=== PATIENT | female | born 1945 | race Caucasian/White ===

== ENCOUNTER 2023-12-29 12:39 | Day surgery (SDC) | payer MEDICARE, SELFPAY ==
--- NOTE | 2023-12-29 | PATH_ITS ---
[facility] Accession Number: [id number] No. of containers..01 Tissue . 01 Material submitted: . colon - SIGMOID ANASTOMOSIS . 01 Diagnosis: Colon, sigmoid anastomosis, biopsy: Viable benign colonic mucosa with congested lamina propria and focal active inflammation. Negative for dysplasia, necrosis, or malignancy. TXN 12/31/2023 1529 Local . 01 Electronically signed: . Hammad Salcedo MD, Pathologist NPI- [id number] . 01 Gross description: . Received in formalin with two patient identifiers and sigmoid anastomosis, are two bradford soft tissue fragments both measuring 0.2 cm in greatest dimension. Submitted entirely in A1. ([id number]) /MRV 12/30/2023 1819 Local . 01 Pathologist provided ICD-10: K62.5 . 01 CPT . 394584 Specimen Comment: A courtesy copy of this report has been sent to [phone] Performed at: [address] [facility] [address], [place], [place] [id number] MD Barry Valderrama MD Phone: [phone]
[2023-12-29 13:14] VITALS: BP 155/88; PULSE 103; RESP 14; TEMP 37.4; O2SAT 99
[2023-12-29] MEDS: LACTATED RINGERS 1,000 ML 42 ML IV (13:22)
--- NOTE | 2023-12-29 13:24 | PM.HP.1 ---
History of Present Illness History of Present Illness Date Patient Seen: 12/29/23 Time Patient Seen: 13:24 Chief complaint: Colonoscopy Narrative: 78-year-old female with intermittent rectal bleeding here for colonoscopy. I reviewed my office note. She did well with the prep. No other significant changes. Bleeding persists. [facility]LY [facility] Medical History (Updated 12/29/23 @ 13:10 by Cece Quevedo RN) Sepsis Diverticula of colon Perforated bowel Polio Surgical History S/P colectomy H/O: hysterectomy Social History Smoking Status: Never smoker alcohol intake: never Meds Home Medications and Allergies Home Medications Medication Instructions Recorded Confirmed Type Aspirin Child 81 mg PO DAILY 12/29/23 12/29/23 History meloxicam 7.5 mg tablet 15 mg PO DAILY 12/29/23 12/29/23 History omeprazole 40 mg capsule,delayed 40 mg PO QAM 12/29/23 12/29/23 History release Allergies Allergy/AdvReac Type Severity Reaction Status Date / Time No Known Drug Allergies Allergy Verified 12/29/23 13:03 Review of Systems Review of Systems ROS: Yes All systems reviewed with the patient and are negative except as otherwise documented Exam Vital Signs (past 8 hours): - 12/29/23 13:14 Temperature 99.3 F Pulse Rate 103 H Respiratory Rate 14 Blood Pressure 155/88 H Pulse Oximetry 99 Oxygen Delivery Method Room Air Oxygen Delivery Method Room Air Const General: cooperative HENMT Head: normal to inspection Eyes General: appearance normal, both eyes and all related structures Neck Neck: normal visual inspection Chest Chest: normal inspection of the chest Resp Effort & Inspection: normal respiratory effort Cardio Rate: regular rate GI Inspection: normal to inspection Skin General: no rashes or lesions noted Neuro General: patient alert and patient awake Extrem General: normal to inspection and no pedal edema Psych Appearance: grossly normal Assessment & Plan Assessment & Plan narrative: 78-year-old female with a history of perforated diverticulitis status post segmental sigmoidectomy. She has a history of anastomotic mild stenosis requiring dilatation. Rectal bleeding symptoms persist and repeat colonoscopy is pursued today. We discussed the possibility of needing further dilatation and she consented to go ahead if need be.
--- NOTE | 2023-12-29 13:26 | PM.PREOP ---
Pre-operative Note Interval Note History & Physical reviewed/Exam performed by Physician: Yes Changes to H&P: No ASA Class (for procedural sedation): II
--- NOTE | 2023-12-29 14:46 | PM.OP.COLON ---
Operative Date/Time/Diagnoses Date of procedure: 12/29/23 Time of procedure: 14:46 Pre-op diagnosis: Rectal bleeding Post-op diagnosis: same Procedure & Clinicians Study performed: Colonoscopy with balloon dilatation and biopsy Same procedure as scheduled: Yes Indications: Rectal bleeding Surgeon: Ethan Antunez Procedure Notes SCOAP/Timeout: Done Procedure in detail: After the risks and benefits were explained, written and verbal informed consent was obtained. The patient was brought into the procedure room and placed into the left lateral decubitus position. Please see anesthesia notes for sedation details. Digital rectal examination was accomplished. The scope was introduced into the patient and advanced under direct visualization to end to side anastomosis around 15-18 cm from the anal verge. This was quite stenotic and I could not advance the pediatric colonoscope through here. I swapped out for a gastroscope and balloon dilated as described below. I then swapped out once again for the pediatric scope and advanced all the way to cecum as identified by the appendiceal orifice and ileocecal valve. The scope was slowly withdrawn to carefully examine the mucosa for any defects or lesions. Comprehensive imaging was accomplished throughout the rectum including the dentate line. The colon was decompressed, the scope was then removed from the patient who tolerated the procedure well. Procedure time was extended in light of the need for dilatation and multiple scopes. Twenty-two modifier is requested. Pediatric colonoscope and a standard gastroscope Bowel prep adequate Scope withdrawal time: 7 minutes Sedation minutes: 43 Complications: none Impression: The end to side anastomosis at around 15-18 cm from the anal verge was moderately stenotic. I could not navigate the pediatric scope through this. There was a small amount of superficial ulceration associated with this otherwise smooth stenotic area. I swapped out scopes for a standard gastroscope and then advanced a 12-15 mm CRE balloon into position over the wire. We sequentially dilated to 15 mm. I then swapped out balloons for the 15-18 mm balloon and dilated further at 16.5 and finally 18 mm. There was a moderate but appropriate rent in the mucosa. I advance the gastroscope through here but at around splenic flexure could not overcome looping so we swapped this scope out for the pediatric colonoscope once again. I did not appreciate any additional pathology from cecum on back. I elected to take a couple of small biopsies from the stenotic region itself. Endoscopic diagnosis 1. Stenotic end to side sigmoid anastomosis status post balloon dilatation to 18 mm plus biopsy. 2. Otherwise visually unremarkable colonoscopy Post-procedure Plan for aftercare: 1. Await histology 2. Fiber based bowel regimen for soft easy to evacuate stools. 3. Consider early repeat flexible sigmoidoscopy for further balloon dilatation. 4. Consider surgical evaluation for revision of the anastomosis. Disposition: PACU
[2023-12-29 14:47] VITALS: BP 123/67; PULSE 93; RESP 20; TEMP 36.2; O2SAT 96
[2023-12-29 14:52] VITALS: BP 123/53; PULSE 89; RESP 19; O2SAT 97
[2023-12-29 14:56] VITALS: BP 113/71; PULSE 77; RESP 17; O2SAT 100
[2023-12-29 15:01] VITALS: BP 119/70; PULSE 69; RESP 15; O2SAT 99
[2023-12-29 15:08] VITALS: BP 134/103; PULSE 71; RESP 20; TEMP 36.1; O2SAT 99
== END 2023-12-29 15:26 | disposition home or self-care (01) ==
PROVIDERS: PCP Student in an Organized Health Care Education/Training Program; Referring Provider Internal Medicine Gastroenterology; Visit Provider Internal Medicine Gastroenterology
PROC: 0DJD8ZZ Inspection of Lower Intestinal Tract, Via Natural or Artificial Opening Endoscopic (ICD-10-PCS; CPT 45378; principal; 2023-12-29 13:30)
DX: K62.5 Hemorrhage of anus and rectum (principal); K52.9 Noninfective gastroenteritis and colitis, unspecified
CPT/HCPCS: 45386; 45380; J2704

== ENCOUNTER 2024-02-16 12:15 | Day surgery (SDC) | payer MEDICARE, SELFPAY ==
[2024-02-16 13:21] VITALS: BP 162/90; PULSE 112; RESP 24; TEMP 36.8; O2SAT 95
--- NOTE | 2024-02-16 13:21 | P.OP.COLON_ITS ---
Operative Date/Time/Diagnoses Date of procedure: 02/16/24 Pre-op diagnosis: See indication and findings Procedure & Clinicians Study performed: Colonoscopy/sigmoidoscopy Indications: Anastomotic stricture and rectal bleeding Surgeon: Aleyda Eagle Procedure Notes Procedure in detail: After informed consent was obtained the patient was placed in left lateral decubitus position. The video colonoscope was introduced the rectum slowly advanced. Preparation was good. On slow withdrawal mucosa was carefully exami natanael. The scope was removed. The patient tolerated procedure well. Blood loss none Sedation mac Findings 1. End-to-side anastomosis at 12-15 cm. Side limb appears normal. Anastomosis itself had areas of friability and small amounts of blood. It 2. Scope passed easily to 50 cm and there was no abnormality in the colon between the anastomosis and 50 cm. The anastomosis was very friable. I would have patient get in touch with Dr. Antunez in about surgical referral as he discussed in last note. I do not think she needs further dilation as he was extremely easy to pass the scope through the anastomosis after he worked on and last procedure
--- NOTE | 2024-02-16 13:21 | PM.PREOP ---
Pre-operative Note Interval Note History & Physical reviewed/Exam performed by Physician: Yes Changes to H&P: No ASA Class (for procedural sedation): II
[2024-02-16] MEDS: LACTATED RINGERS 1,000 ML 100 ML IV (13:46)
[2024-02-16 14:03] VITALS: BP 102/76; PULSE 88; RESP 16; TEMP 36.3; O2SAT 99
[2024-02-16 14:08] VITALS: BP 103/73; PULSE 85; RESP 14; O2SAT 98
[2024-02-16 14:13] VITALS: BP 135/75; PULSE 83; RESP 13; O2SAT 99
[2024-02-16 14:21] VITALS: BP 145/91; PULSE 83; RESP 18; TEMP 36.8; O2SAT 99
== END 2024-02-16 15:03 | disposition home or self-care (01) ==
PROVIDERS: PCP Student in an Organized Health Care Education/Training Program; Referring Provider Internal Medicine Gastroenterology; Visit Provider Internal Medicine Gastroenterology
PROC: 0DJD8ZZ Inspection of Lower Intestinal Tract, Via Natural or Artificial Opening Endoscopic (ICD-10-PCS; CPT 45378; principal; 2024-02-16 13:30)
DX: K62.5 Hemorrhage of anus and rectum (principal); K56.699 Other intestinal obstruction unspecified as to partial versus complete obstruction
CPT/HCPCS: 45330; J2704

== ENCOUNTER → 2024-09-27 14:00 | Outpatient (CLI) | payer MEDICARE, SELFPAY ==
--- NOTE | 2024-09-27 14:01 | DI.MG.S_ITS ---
MM screening mammo BI: 09/27/2024. BI-RADS: 1 CLINICAL: 79-year old female for bilateral screening mammogram. Tyrer-Cuzick lifetime risk of 1.8%. No personal or first-degree family history of breast cancer. Current reported family history of breast cancer: maternal aunt. PRIOR EXAMS: 10/18/2022, 08/28/2020. MAMMOGRAPHY TECHNIQUE: 2D and 3D (tomosynthesis) digital mammographic views obtained, with additional images as needed for full coverage. Current study was also evaluated with a Computer Aided Detection (CAD) system. DENSITY B. There are scattered areas of fibroglandular density. MAMMOGRAPHY FINDINGS Bilateral: No suspicious mass, asymmetry, microcalcification, or other abnormality seen. No significant change from comparison. IMPRESSION: * No evidence of malignancy. RECOMMENDATIONS Bilateral * Annual screening mammography. OVERALL ASSESSMENT CATEGORY BI-RADS-1: Negative. [employer] recommends annual screening mammography beginning at age 40 for women with average risk of breast cancer. ELECTRONICALLY SIGNED: Aster Galloway M.D. on 09/27/2024 at 04:37:21 PM PT Interpreting Station ID: [id number]
== END ==
PROVIDERS: PCP Student in an Organized Health Care Education/Training Program; Referring Provider Student in an Organized Health Care Education/Training Program; Visit Provider Student in an Organized Health Care Education/Training Program
DX: Z12.31 Encounter for screening mammogram for malignant neoplasm of breast (principal); Z80.3 Family history of malignant neoplasm of breast
CPT/HCPCS: 77063; 77067